=== PATIENT | female | born 1955 | race Caucasian/White ===

== ENCOUNTER 2016-09-16 22:41 | Emergency (ER) | payer MEDICAID ==
[~2016-09-16] VITALS: Ht 172.7 cm; Wt 59.0 kg
[2016-09-16 22:48] VITALS: BP 136/82; PULSE 109; RESP 18; TEMP 97.6; O2SAT 98
--- NOTE | 2016-09-16 22:55 | NUR ---
Pt placed in bed 5 and gowned up for evaluation
--- NOTE | 2016-09-16 23:20 | NUR ---
Pt presents to ED with c/o spider bite since yesterday's afternoon. Fang bonds noted at left lateral wrist and left hand, with oozing of pus, redness, and painful to touch 10/10. A&Ox4, denies SOB or chestpain, denies N/V/D. Will continue to monitor
--- NOTE | 2016-09-16 23:42 | NUR ---
at bedside examining pt
[2016-09-16] MEDS ORDERED: SULFAMETHOXAZOLE/TRIMETHOPR DS 1 TABLET PO ONE (23:45)
[2016-09-16] MEDS ORDERED: BACITRACIN 1 GM OINT TP ONE (23:45)
[2016-09-16] MEDS ORDERED: cefTRIAXone 1 GM VIAL IM ONE (23:45)
[2016-09-16] MEDS ORDERED: LIDOCAINE 1%, 20 ML MDV 20 ML ONE (23:51)
[2016-09-17 00:13] VITALS: BP 123/78; PULSE 89; RESP 18; TEMP 98.1; O2SAT 100
--- NOTE | 2016-09-17 00:17 | NUR ---
Patient given written and verbal discharge instructions and verbalizes understanding. ER MD discussed with patient the results and treatment provided. Patient in stable condition. ID arm band removed. Rx of Bactrim, Bacitracin given. Patient educated on pain management and to follow up with PMD. Pain Scale 0/10. Opportunity for questions provided and answered.
== END 2016-09-17 00:13 | disposition home or self-care (01) ==
LOC: SED 22:41
DX: L03.114 Cellulitis of left upper limb (principal); F31.9 Bipolar disorder, unspecified; Z88.0 Allergy status to penicillin; Z88.6 Allergy status to analgesic agent
CPT/HCPCS: 96372; 99283; J0696; J2001

== ENCOUNTER 2017-02-05 20:32 | Emergency (ER) | payer MEDICAID ==
[~2017-02-05] VITALS: Ht 172.7 cm; Wt 59.0 kg
[2017-02-05 20:32] VITALS: BP_SYST 121
--- NOTE | 2017-02-05 20:33 | NUR ---
PT IN WAITING ROOM AWAITING AVAILBLE BED .
--- NOTE | 2017-02-05 21:45 | NUR ---
PT STATED "I AM GOING HOME" Patient left without being seen.
== END 2017-02-05 21:45 | disposition left against medical advice (07) ==
LOC: SED 20:32
DX: T14.8 Other injury of unspecified body region (principal); Z53.21 Procedure and treatment not carried out due to patient leaving prior to being seen by health care provider

== ENCOUNTER 2019-05-21 01:59 | Emergency (ER) | payer MEDICAID ==
[~2019-05-21] VITALS: Ht 172.7 cm; Wt 59.0 kg
[2019-05-21 02:55] VITALS: BP_SYST 131
--- NOTE | 2019-05-21 04:50 | NUR ---
Patient to ER bed 3 to gown for evaluation. Side rails up.
--- NOTE | 2019-05-21 04:55 | NUR ---
Pt brought in by self. Pt awake, alert, oriented x4. Pt states that she was visiting a friend approx 5 days ago and started feeling "bug bites"when she was visiting his house. Pt states that she began having a rash on trunk and lower body. Pt denies chest pain, nausea, vomiting, diarrhea or shortness of breath. pt states that she usually gets antibiotics for "this sort of thing". Pt states that she has no other medical complaint at this time. pt resting comfortably in bed. pt provided with icepacks for comfort. pt vss
--- NOTE | 2019-05-21 05:09 | NUR ---
ER at bedside examining patient.
[2019-05-21] MEDS ORDERED: ACETAMINOPHEN 500 MG TABLET PO ONE (05:30)
--- NOTE | 2019-05-21 05:30 | NUR ---
Pt requested Oral antibiotics or IM injection. made aware.
--- NOTE | 2019-05-21 06:00 | NUR ---
Pt resting in Bed, Awake, alert, oriented. pt denies additional medical complaint at this time.
[2019-05-21 06:30] LABS: BASOPHILS % (AUTO) 0.4 % (0.0-2.0); EOSINOPHILS # (AUTO) 0.3 K/uL (0.0-0.4); EOSINOPHILS % (AUTO) 4.1 % (0.0-4.0); HEMATOCRIT 44.1 % (36-48); HEMOGLOBIN 14.6 g/dL (12.0-16.0); LYMPHOCYTES # (AUTO) 1.9 K/uL (1.0-5.5); LYMPHOCYTES % (AUTO) 27.9 % (20.5-51.5); MEAN CORPUSCULAR HEMOGLOBIN 30 pg (27-31); MEAN CORPUSCULAR HGB CONC 33 % (32-36); MEAN CORPUSCULAR VOLUME 91 fL (79.0-98.0); MONOCYTES # (AUTO) 0.4 K/uL (0.0-1.0); MONOCYTES % (AUTO) 6.1 % (1.7-9.3); NEUTROPHILS # (AUTO) 4.2 K/uL (1.8-7.7); NEUTROPHILS % (AUTO) 61.5 % (40.0-70.0); PLATELET COUNT (AUTO) 251 K/uL (130-430); RED BLOOD CELL COUNT(AUTO) 4.83 MIL/uL (4.2-6.2); WHITE BLOOD COUNT (AUTO) 6.8 K/uL (4.8-10.8)
[2019-05-21] MEDS ORDERED: LEVOFLOXACIN 500 MG TABLET PO ONE (06:30)
[2019-05-21 06:39] LABS: CREATININE 0.75 mg/dL (0.55-1.30)
[2019-05-21 06:51] LABS: ALBUMIN 3.8 g/dL (3.4-4.8); TOTAL BILIRUBIN 0.4 mg/dL (0.0-1.0)
[2019-05-21 06:55] VITALS: BP_SYST 131
--- NOTE | 2019-05-21 06:55 | NUR ---
Patient given written and verbal discharge instructions and verbalizes understanding. ER MD discussed with patient the results and treatment provided. Patient in stable condition. ID arm band removed. Rx of [place], [place] given. Patient educated on pain management and to follow up with PMD. Pain Scale 0/10. Opportunity for questions provided and answered. Medication side effect fact sheet provided.
== END 2019-05-21 06:55 | disposition home or self-care (01) ==
LOC: SED 01:59
DX: L03.311 Cellulitis of abdominal wall (principal); L03.312 Cellulitis of back [any part except buttock and flank]; L03.115 Cellulitis of right lower limb; L03.116 Cellulitis of left lower limb
CPT/HCPCS: 36415; 80053; 85025; 87040-TC; 99283; J1956

== ENCOUNTER 2019-07-05 03:16 | Emergency (ER) | payer MEDICAID ==
[~2019-07-05] VITALS: Ht 172.7 cm; Wt 59.0 kg
--- NOTE | 2019-07-05 03:29 | NUR ---
Arsalan gallegos in EDM - 07/05/19 at 0332 by SHELLY Pt placed to ER bed 04, to jessica, to regional retail sales manager. Report given to CÉSAR Elliott.
[2019-07-05 03:37] VITALS: BP_SYST 155
--- NOTE | 2019-07-05 03:47 | NUR ---
Pt placed to ER bed 05, to gown. Pt c/o itching and burning rash to left neck, right side, and RUE x 1 day r/t bug bites. Swelling noted to RHA. Pt states that she has a hx of cellulis from bug bites. Airway patent, no respiratory distress noted.
--- NOTE | 2019-07-05 03:47 | NUR ---
Note undone in EDM - 07/05/19 at 0350 by SHELLY Pt placed to ER bed 05, to gown. Pt c/o itching and burning rash to left neck, left side, and RUE x 1 day r/t bug bites. Swelling noted to RHA. Pt states that she has a hx of cellulis from bug bites. Airway patent, no respiratory distress noted.
--- NOTE | 2019-07-05 03:48 | NUR ---
Pt report given to CÉSAR Nicholas.
--- NOTE | 2019-07-05 04:00 | NUR ---
# 20 gauge angiocath placed to LAC. Use of asceptic technique. Opsite placed over site. Blood return noted. Blood for lab drawn from site. Flushed with 10 cc of normal saline. No evidence of infiltration noted. Patient tolerated well.
[2019-07-05 04:41] LABS: BASOPHILS % (AUTO) 0.6 % (0.0-2.0); EOSINOPHILS # (AUTO) 0.2 K/uL (0.0-0.4); HEMATOCRIT 41.5 % (36-48); HEMOGLOBIN 13.6 g/dL (12.0-16.0); LYMPHOCYTES # (AUTO) 2.4 K/uL (1.0-5.5); LYMPHOCYTES % (AUTO) 32.2 % (20.5-51.5); MEAN CORPUSCULAR HEMOGLOBIN 30 pg (27-31); MEAN CORPUSCULAR HGB CONC 33 % (32-36); MEAN CORPUSCULAR VOLUME 91 fL (79.0-98.0); MONOCYTES # (AUTO) 0.7 K/uL (0.0-1.0); MONOCYTES % (AUTO) 9.1 % (1.7-9.3); NEUTROPHILS % (AUTO) 55.1 % (40.0-70.0); PLATELET COUNT (AUTO) 280 K/uL (130-430); RED BLOOD CELL COUNT(AUTO) 4.59 MIL/uL (4.2-6.2); RED CELL DISTRIBUTION WIDTH 13.1 % (9.0-15.0); WHITE BLOOD COUNT (AUTO) 7.3 K/uL (4.8-10.8)
[2019-07-05 04:49] LABS: CALCIUM 8.7 mg/dL (8.4-11.0); CREATININE 0.67 mg/dL (0.55-1.30); POTASSIUM 3.9 mmol/L (3.5-5.1)
[2019-07-05 04:53] LABS: ALBUMIN 3.6 g/dL (3.4-4.8); TOTAL BILIRUBIN 0.3 mg/dL (0.0-1.0)
--- NOTE | 2019-07-05 05:01 | NUR ---
VSS no s/s of acute distress Resting on gurney rails up
[2019-07-05 05:03] LABS: BILIRUBIN,URINE NEGATIVE (NEGATIVE); BLOOD, URINE NEGATIVE (NEGATIVE); COLOR,URINE YELLOW (YELLOW); GLUCOSE,URINE NEGATIVE (NEGATIVE); KETONES,URINE NEGATIVE (NEGATIVE); LEUKOCYTE ESTERASE ,URINE TRACE (NEGATIVE); NITRITE, URINE NEGATIVE (NEGATIVE); PH,URINE 7.5 (5.0-8.0); PROTEIN URINE NEGATIVE (NEGATIVE); UROBILINOGEN,URINE 0.2 (0.2-1.0)
[2019-07-05 05:06] LABS: CLARITY/URINE SLIGHTLY HAZY (CLEAR)
[2019-07-05] MEDS ORDERED: ACETAMINOPHEN 500 MG TABLET PO ONE (05:45)
[2019-07-05] MEDS ORDERED: LEVOFLOXACIN 500 MG TABLET PO ONE (05:45)
[2019-07-05 05:46] LABS: BACTERIA,URINE MODERATE /HPF (None Seen); RBC,URINE 0-3 /HPF (0-3); URINE AMORPHOUS PHOSPHATES 1+ /HPF (None Seen)
[2019-07-05 06:02] VITALS: BP_SYST 138
--- NOTE | 2019-07-05 06:02 | NUR ---
Patient given written and verbal discharge instructions and verbalizes understanding. ER MD discussed with patient the results and treatment provided. Patient in stable condition. ID arm band removed. IV catheter removed intact and dressing applied, no active bleeding. Rx of [place] and Levaquin given. Patient educated on pain management and to follow up with PMD. Pain Scale 0/10 Opportunity for questions provided and answered. Medication side effect fact sheet provided.
== END 2019-07-05 06:02 | disposition home or self-care (01) ==
LOC: SED 03:16
DX: L03.90 Cellulitis, unspecified (principal); Z88.0 Allergy status to penicillin; Z88.6 Allergy status to analgesic agent
CPT/HCPCS: 36415; 80053; 81000-TC; 83605; 85025; 87040-TC; 87086; 99283